=== PATIENT | male | born 1990 | race Caucasian/White ===

== ENCOUNTER 2022-11-04 13:09 | Emergency (ER) | payer OTHER ==
[~2022-11-04] VITALS: Ht 182.9 cm; Wt 72.6 kg
[~2022-11-04 13:09] MED LIST: SULF1TAB48 PO
--- NOTE | 2022-11-04 14:10 | NUR ---
seen and examined by
[2022-11-04] MEDS ORDERED: SULFAMETH/TRIMETH 800/160 MG TABLET PO ONE (14:15)
[2022-11-04] MEDS ORDERED: CEFTRIAXONE 1 G VIAL IM ONE (14:15)
[2022-11-04] MEDS ORDERED: CHLO118L TP (14:18)
[2022-11-04] MEDS ORDERED: CEPH500T PO (14:18)
[2022-11-04] MEDS ORDERED: SULF1TAB48 PO (14:18)
[2022-11-04] MEDS ORDERED: CEFTRIAXONE 1 G VIAL ONE (14:20)
[2022-11-04] MEDS ORDERED: SULFAMETH/TRIMETH 800/160 MG TABLET ONE (14:20)
--- NOTE | 2022-11-04 14:40 | NUR ---
dPatient discharged to home in stable condition. Written and verbal after care instructions given. Patient verbalizes understanding of instructions. Stressed follow up or return to ER for worsening s/s.
== END 2022-11-04 14:41 | disposition home or self-care (01) ==
LOC: ER 13:09 → MERGE 13:09 → ER 14:41
DX: L03.114 Cellulitis of left upper limb (principal); F17.210 Nicotine dependence, cigarettes, uncomplicated; F15.10 Other stimulant abuse, uncomplicated; Z79.899 Other long term (current) drug therapy
CPT/HCPCS: 99283; 96372; J0696; A4663

== ENCOUNTER 2022-12-28 12:19 | Emergency (ER) | payer OTHER ==
[~2022-12-28] VITALS: Ht 182.9 cm; Wt 72.6 kg
[~2022-12-28 12:19] MED LIST changes: +CEPH500T PO; +CHLO118L TP
[2022-12-28 12:32] VITALS: O2SAT 99
== END 2022-12-28 12:53 | disposition left against medical advice (07) ==
LOC: ER 12:19
DX: L02.511 Cutaneous abscess of right hand (principal); L03.113 Cellulitis of right upper limb; Z79.899 Other long term (current) drug therapy
CPT/HCPCS: A4663

== ENCOUNTER 2023-03-20 17:06 | Emergency (ER) | payer OTHER ==
[~2023-03-20] VITALS: Ht 182.9 cm; Wt 68.0 kg
[2023-03-20 18:32] VITALS: O2SAT 97
[2023-03-20] MEDS ORDERED: CIPR7.5D RIGHT EAR (18:49)
== END 2023-03-20 18:54 | disposition home or self-care (01) ==
LOC: ER 17:08
DX: H60.91 Unspecified otitis externa, right ear (principal); Z79.2 Long term (current) use of antibiotics; Z79.899 Other long term (current) drug therapy
CPT/HCPCS: A4606; A4663

== ENCOUNTER 2023-05-14 14:59 | Emergency (ER) | payer OTHER ==
[~2023-05-14] VITALS: Ht 182.9 cm; Wt 72.6 kg
[~2023-05-14 14:59] MED LIST changes: +CIPR7.5D RIGHT EAR
[2023-05-14 15:06] VITALS: O2SAT 97
[2023-05-14] MEDS ORDERED: DIPH25CA83 PO (15:43)
[2023-05-14] MEDS ORDERED: AMOX-430 PO (15:43)
== END 2023-05-14 15:49 | disposition home or self-care (01) ==
LOC: ER 15:01
DX: K04.7 Periapical abscess without sinus (principal); K03.2 Erosion of teeth; L29.9 Pruritus, unspecified; F19.10 Other psychoactive substance abuse, uncomplicated; Z79.899 Other long term (current) drug therapy
CPT/HCPCS: A4606; A4663